=== PATIENT | female | born 1960 ===

== ENCOUNTER 2021-05-02 09:45 | Inpatient (IN) | payer OTHER ==
[~2021-05-02] VITALS: Ht 149.9 cm; Wt 47.2 kg
[2021-05-02] MEDS ORDERED: CRESTOR20 MG PO (10:11)
[2021-05-02] MEDS ORDERED: VASOTEC5 MG PO (10:11)
[2021-05-02] MEDS ORDERED: ZYRTEC10 M2 PO (10:12)
[2021-05-02] MEDS ORDERED: MONTELUKAST SOD10 MG PO (10:12)
[2021-05-02] MEDS ORDERED: METFORMIN HCL1000 M2 PO (10:12)
[2021-05-08] MEDS ORDERED: MEGESTROL ACETA20 MG (11:41)
[2021-05-08] MEDS ORDERED: ATORVASTATIN CA20 MG (11:41)
[2021-05-08] MEDS ORDERED: OMEPRAZOLE20 MG (11:41)
== END 2021-05-11 13:19 | disposition home or self-care (01) | DRG 743 ==
LOC: SURH 05-08 09:45 → O/R 05-08 09:56 → OB/GYN 05-08 09:56 → SURH 05-08 11:45 → OB/GYN 05-08 16:23
PROVIDERS: ADMIT Obstetrics & Gynecology; ATTEND Obstetrics & Gynecology
PROC: 0UT20ZZ Resection of Bilateral Ovaries, Open Approach (ICD-10-PCS; 2021-05-08)
PROC: 0UT70ZZ Resection of Bilateral Fallopian Tubes, Open Approach (ICD-10-PCS; 2021-05-08)
PROC: 0UT90ZZ Resection of Uterus, Open Approach (ICD-10-PCS; principal; 2021-05-08 11:45)
DX: N72 Inflammatory disease of cervix uteri (principal); N80.0 Endometriosis of uterus; N94.89 Other specified conditions associated with female genital organs and menstrual cycle; N83.201 Unspecified ovarian cyst, right side; N83.292 Other ovarian cyst, left side; D25.9 Leiomyoma of uterus, unspecified; N83.332 Acquired atrophy of left ovary and fallopian tube; N83.331 Acquired atrophy of right ovary and fallopian tube; N95.0 Postmenopausal bleeding